=== PATIENT | male | born 1985 | race American Indian/Alaskan Native ===

== ENCOUNTER 2025-01-20 20:24 | Emergency (ER) | payer OTHER, SELFPAY ==
[~2025-01-20] VITALS: Ht 170.2 cm; Wt 91.4 kg
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
[2025-01-20] MEDS ORDERED: GABA300T4 PO (21:49)
[2025-01-20] MEDS ORDERED: CYCL-838 PO (21:49)
[2025-01-20 22:05] VITALS: BP 117/65; TEMP 97.9
[2025-01-20 22:06] VITALS: PULSE 71; RESP 19; O2SAT 97
== END 2025-01-20 22:11 | disposition home or self-care (01) ==
LOC: ER 20:24
DX: S13.4XXA Sprain of ligaments of cervical spine, initial encounter (principal); S33.5XXA Sprain of ligaments of lumbar spine, initial encounter; Z88.0 Allergy status to penicillin; V43.52XA Car driver injured in collision with other type car in traffic accident, initial encounter; Y93.89 Activity, other specified; Y92.410 Unspecified street and highway as the place of occurrence of the external cause; Y99.8 Other external cause status
CPT/HCPCS: 72040

== ENCOUNTER 2025-09-17 08:08 | Inpatient (IN) | payer OTHER, SELFPAY ==
[2025-09-17] VITALS (8 sets, daily range): BP systolic 11–126; BP diastolic 74–93; PULSE 64–124; RESP 11–20; TEMP 97.7–98.7; O2SAT 94–100
[~2025-09-17] VITALS: Ht 170.2 cm; Wt 86.9 kg
[~2025-09-17 08:08] MED LIST: CYCL-838 PO; GABA300T4 PO
[2025-09-17] MEDS: ACETAMINOPHEN 500 MG TAB or CAP PO ONE (08:49)
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
[2025-09-17 08:58] LABS: Hematocrit 47.6 % (41.0-53.0); Hemoglobin 16.1 g/dL (13.5-17.5); Mean Corpuscular Hemoglobin 30.0 pg (28.0-32.0); Mean Corpuscular Volume 88.5 fL (80.0-100.0); Nucleated Red Blood Cells % 0.1 %
[2025-09-17 09:06] LABS: Chloride 101 mmol/L (98-107); Potassium 4.3 mmol/L (3.5-5.1); Sodium 138 mmol/L (136-145)
[2025-09-17 09:07] LABS: Anion Gap 11 (5-15); Carbon Dioxide 26 mmol/L (20-31)
[2025-09-17 09:08] LABS: Calcium 9.5 mg/dL (8.7-10.4)
[2025-09-17 09:12] LABS: BUN/Creatinine Ratio 15.7 (10.0-20.0); Blood Urea Nitrogen 14 mg/dL (9-23); Glucose 96 mg/dL (74-106)
[2025-09-17] MEDS: LACTATED RINGER'S 2,000 ML IV ONE (09:14)
--- NOTE | 2025-09-17 09:23 | DVH ---
CHEST RADIOGRAPH Indication: sob Technique: Two views of the chest was obtained. Comparison: XR CHEST 2 VIEWS on DOS: 03/10/21 Findings: No focal consolidation. No significant pleural effusion. No pneumothorax. Mildly enlarged cardiomediastinal silhouette. IMPRESSION: No acute pulmonary process.
[2025-09-17] MEDS: AZITHROMYCIN 500MG/250ML 250 ML IV ONE (10:03)
[2025-09-17 10:07] LABS: COVID19 ANTIGEN SOFIA FIA NEGATIVE (NEGATIVE)
--- NOTE | 2025-09-17 11:11 | DVHHPRES ---
History of Present Illness Resident Creating Document: ASHKAN DELAROSA History of Present Illness Juan Pablo Unger is a 39-year-old male patient who presents to ED with chief complaint of two day history of nausea, sinus, dyspnea functional class four and dry cough, which progressed with slurred speech, numbness in four limbs and chills the day of his admission, prompting his visit. Patient reports presenting similar symptoms approximately two years ago where he was diagnosed with questionable TIA (he is not on aspirin nor statins). Denies any other associated symptoms. Past medical history: Questionable TIA Surgical history: Right hand surgery Family history: Father had colon cancer and grandmother had breast cancer Social history: He lives in [place] with family (next of kin is mother and ). Denies current tobacco, alcohol and other drug abuse Allergies: Penicillin Home medication: Denies Patient seen and examined at bedside. Currently has been new complaints. Patient admitted for further evaluation. Past Medical History Per HPI Past Surgical History Per HPI Family History Per HPI Past Social History Per HPI Review of Systems Review of Systems Per HPI Allergies: Coded Allergies: Penicillins (Verified Allergy, Unknown, 01/20/25) Exam Vital Signs Vital Signs Date Time Temp Pulse Resp B/P (MAP) Pulse Ox O2 Delivery O2 Flow Rate FiO2 09/17/25 09:49 98.7 09/17/25 08:30 124 20 126/93 (104) 98 Exam Patient lying in bed, in no acute distress General: Lucid, afebrile, mucosae are moist Cardiovascular: Normal S1 and S2. No murmurs, gallops or rubs Respiratory: Normal ventilation mechanics. Clear lung sounds on auscultation Abdomen: Soft, nontender, no organomegaly, normal bowel sounds MSK/skin: Mobilizes 4 limbs. Skin is dry and warm Neurological: Oriented in 3 spheres. No motor no sensitive deficits. Pupils are isocoric and reactive Labs/Xrays Labs Test 09/17/25 09:45 09/17/25 09:00 09/17/25 08:41 09/17/25 08:37 Range/Units Troponin I High Sensitivity 37 </=54 ng/L Lactic Acid Level 0.7 0.4-2.0 mmol/L White Blood Count 8.5 4.4-10.8 10^3/uL Red Blood Count 5.38 4.5-5.90 10^6/uL Hemoglobin 16.1 13.5-17.5 g/dL Hematocrit 47.6 41.0-53.0 % Mean Corpuscular Volume 88.5 80.0-100.0 fL Mean Corpuscular Hemoglobin 30.0 28.0-32.0 pg Mean Corpuscular Hemoglobin Concent 33.9 32.0-36.0 g/dL Red Cell Distribution Width 13.5 11.8-14.3 % Platelet Count 195 140-450 10^3/uL Mean Platelet Volume 8.7 6.9-10.8 fL Neutrophils (%) (Auto) 82.8 H 37.0-80.0 % Lymphocytes (%) (Auto) 7.8 L 10.0-50.0 % Monocytes (%) (Auto) 7.7 0.0-12.0 % Eosinophils (%) (Auto) 0.9 0.0-7.0 % Basophils (%) (Auto) 0.8 0.0-2.0 % Neutrophils # (Auto) 7.1 1.6-8.6 10 ^3/uL Lymphocytes # (Auto) 0.7 0.4-5.4 10 ^3/uL Monocytes # (Auto) 0.7 0-1.3 10 ^3/uL Eosinophils # (Auto) 0.1 0-0.8 10 ^3/uL Basophils # (Auto) 0.1 0-0.2 10 ^3/uL Nucleated Red Blood Cells 0.1 % Sodium Level 138 136-145 mmol/L Potassium Level 4.3 3.5-5.1 mmol/L Chloride Level 101 98-107 mmol/L Carbon Dioxide Level 26 20-31 mmol/L Anion Gap 11 5-15 Blood Urea Nitrogen 14 9-23 mg/dL Creatinine 0.89 0.700-1.30 mg/dL Glomerular Filtration Rate Calc 110 >90 mL/min BUN/Creatinine Ratio 15.7 10.0-20.0 Serum Glucose 96 74-106 mg/dL Calcium Level 9.5 8.7-10.4 mg/dL Influenza Type A Antigen Negative Negative Influenza Type B Antigen Negative Negative SARS-CoV-2 Antigen (Rapid) Negative NEGATIVE SEPSIS Sepsis Screen Date sepsis recognized/suspect: Sep 17, 2025 Time Sepsis recognized/suspect: 816 Recent Procedure: No On Antibiotic Therapy: No Respiratory Rate >20: No Heart Rate >90: Yes Temp<36 C (96.8 F) or >38.3 C: No SBP <90 or MAP <65 mmHG: No New Acute Mental Status Change: No Is the patient on CPAP, BIPAP,: No Physician Orders Chest Two Views Routine (09/17/25 08:39) Urinalysis (09/17/25 08:39) Electrocardigram (09/17/25 08:44) Blood Culture (09/17/25 08:43) Notify Md If Map <65 Or Bp<90 (09/17/25 08:43) If Map<65 Start Vasopressor (09/17/25 08:43) Sepsis Reassesment After Fluid (09/17/25 09:43) Troponin-I Hs (09/17/25 11:53) Admit (09/17/25 11:01) Code Status (09/17/25 11:01) Acetaminophen Tablet (Tylenol Tablet) (09/17/25 11:15) Ondansetron Hcl (Zofran) (09/17/25 11:15) Complete Blood Count (09/18/25 04:00) Comprehensive Metabolic Panel (09/18/25 04:00) Npo (Nothing By Mouth) Diet (09/17/25 Lunch) Echo 2d Mode Cardiac Dop (09/17/25 11:01) Morphine Sulfate Injection (09/17/25 11:15) Lovenox 40mg (09/18/25 10:00) Nitroglycerin Sublingual (Ntrostat Subli (09/17/25 11:15) Morphine Sulfate Injection (09/17/25 11:15) Oxygen By Nasal Cannula (09/17/25 11:01) Stat Ekg For Chest Pain (09/17/25 11:01) Notify Md Of Changes From Base (09/17/25 11:01) Bath Mixer For 24 Hours (09/17/25 11:01) Emergency Dysrhythmia Protocol (09/17/25 11:01) Rhythm Strips Once Every Shift (09/17/25 11:01) Ipratropium Medneb (Atrovent Medneb) (09/17/25 12:00) Levalbuterol Hcl (Xopenex Medneb) (09/17/25 12:00) Azithromycin 500mg/250ml (Zithromax 500m (09/18/25 10:00) Ceftriaxone Ivpb Rocephin (09/18/25 09:00) NS (09/17/25 11:15) Vitamin D, 25-Hydroxy (09/17/25 11:01) Vitamin B12 (09/17/25 11:01) Urinalysis (09/17/25 11:01) Thyroid Stimulating Hormone (09/17/25 11:01) PTPTT (09/17/25 11:01) Phosphorus (09/17/25 11:01) Magnesium (09/17/25 11:01) Lipid Panel (09/17/25 11:01) Lipase (09/17/25 11:01) Hemoglobin A1c (09/17/25 11:01) Drug Screen (09/17/25 11:01) Ct Angio Chest Contrast (09/17/25 11:01) Hepatic Panel (09/17/25 11:01) Vital Signs Date Time Temp Pulse Resp B/P (MAP) Pulse Ox O2 Delivery O2 Flow Rate FiO2 09/17/25 09:49 98.7 09/17/25 08:49 99.3 09/17/25 08:30 102.4 124 20 126/93 (104) 98 102.4 09/17/25 08:18 116 09/17/25 08:12 97.8 118 16 132/75 100 97.8 Laboratory Tests Test 09/17/25 08:41 09/17/25 09:00 White Blood Count 8.5 10^3/uL (4.4-10.8) Lactic Acid Level 0.7 mmol/L (0.4-2.0) Medications Medications Dose Ordered Sig/Ta Route Start Time Stop Time Status Last Admin Dose Admin Acetaminophen 1,000 mg ONCE ONCE PO 09/17/25 08:45 09/17/25 08:46 DC 09/17/25 08:49 1,000 MG Azithromycin 250 ml @ 125 mls/hr ONCE ONCE IV 09/17/25 08:45 09/17/25 10:44 DC 09/17/25 10:03 125 MLS/HR Ceftriaxone Sodium 50 ml @ 100 mls/hr ONCE ONCE IV 09/17/25 08:45 09/17/25 09:14 DC 09/17/25 09:44 100 MLS/HR Lactated Ringer's 2,000 ml @ 2,000 mls/hr ONCE ONCE IV 09/17/25 08:45 09/17/25 09:44 DC 09/17/25 09:14 2,000 MLS/HR Assessment/Plan Assessment/Plan ASSESSMENT Sepsis secondary to pneumonia Community-acquired pneumonia Gram-positive/Gram-negative Rule out CVA Ruled out pulmonary embolism Obesity PLAN Admit patient to telemetry Completed head CT which showed no acute intracranial pathology Completed Angio CT which ruled out pulmonary embolism. Questionable congestive heart failure versus pneumonia Ordered brain MRI, echocardiogram and carotid duplex for CVA work up Currently under empiric IV antibiotic (ceftriaxone azithromycin) Ordered pancultures Ruled out influenza and COVID pneumonia Patient is currently on aspirin atorvastatin Ordered HIV and treponema to evaluate immunodeficiency Goals of care discussed with patient for over 18 minutes: Full code status Discussed plan with Dr. Black, patient and nurses: Currently on telemetry status. Ruling out CVA due to presence of slurred speech. Currently under empi nuzhat IV antibiotic due to sepsis, pending culture results. Plan discussed with: Patient, Spouse, Other (Mother and nurses) My Orders Orders - ASHKAN DELAROSA RESIDENT Procedure Category Date Status Time Admit ADMIT 09/17/25 Transmitted 11:01 Code Status CODE 09/17/25 Transmitted 11:01 Acetaminophen Tablet PHA 09/17/25 Logged (Tylenol Tablet) 11:15 Ondansetron Hcl PHA 09/17/25 Logged (Zofran) 11:15 Complete Blood Count LAB 09/18/25 Verified 04:00 Comprehensive LAB 09/18/25 Verified Metabolic Panel 04:00 Npo (Nothing By DIET 09/17/25 Transmitted Mouth) Diet Lunch Echo 2d Mode Cardiac US 09/17/25 Transmitted DOP 11:01 Morphine Sulfate PHA 09/17/25 Logged Injection 11:15 Lovenox 40mg PHA 09/18/25 Transmitted 10:00 Nitroglycerin PHA 09/17/25 Transmitted Sublingual (Ntrostat 11:15 Morphine Sulfate PHA 09/17/25 Transmitted Injection 11:15 Oxygen By Nasal RT 09/17/25 Transmitted Cannula 11:01 Stat Ekg For Chest RADHA 09/17/25 Transmitted Pain 11:01 Notify Of Changes RADHA 09/17/25 Transmitted From Base 11:01 Bath Mixer For RADHA 09/17/25 Transmitted 24 Hours 11:01 Emergency Dysrhythmia RADHA 09/17/25 Transmitted Protocol 11:01 Rhythm Strips Once RADHA 09/17/25 Transmitted Every Shift 11:01 Ipratropium Medneb PHA 09/17/25 Transmitted (Atrovent Medneb) 12:00 Levalbuterol Hcl PHA 09/17/25 Transmitted (Xopenex Medneb) 12:00 Azithromycin PHA 09/18/25 Transmitted 500mg/250ml 10:00 Ceftriaxone Ivpb PHA 09/18/25 Transmitted Rocephin 09:00 NS PHA 09/17/25 Transmitted 11:15 Vitamin D, 25-Hydroxy LAB 09/17/25 Transmitted 11:01 Vitamin B12 LAB 09/17/25 Transmitted 11:01 Urinalysis LAB 09/17/25 Transmitted 11:01 Thyroid Stimulating LAB 09/17/25 Transmitted Hormone 11:01 PTPTT LAB 09/17/25 Transmitted 11:01 Phosphorus LAB 09/17/25 Transmitted 11:01 Magnesium LAB 09/17/25 Transmitted 11:01 Lipid Panel LAB 09/17/25 Transmitted 11:01 Lipase LAB 09/17/25 Transmitted 11:01 Hemoglobin A1c LAB 09/17/25 Transmitted 11:01 Drug Screen LAB 09/17/25 Transmitted 11:[address] 09/17/25 Transmitted Contrast 11:01 Hepatic Panel LAB 09/17/25 Transmitted 11:01 Date of Service: Sep 17, 2025 Billing Provider: LULY BLACK MD Common Visit Codes: 04573-[id number] INP/OBS CARE (HIGH) Secondary Visit Codes: [id number] CARE PLAN 30 MINUTES ASHKAN DELAROSA Sep 17, 2025 11:11
[2025-09-17] MEDS ORDERED: ONDANSETRON HCL 4 MG/2 ML VIAL IV PRN (11:15)
[2025-09-17] MEDS ORDERED: ACETAMINOPHEN 325 MG TAB PO PRN (11:15)
[2025-09-17] MEDS ORDERED: NITROGLYCERIN 0.4 MG SL TAB SL PRN (11:15)
[2025-09-17] MEDS: IPRATROPIUM BROM 0.5 MG/2.5ML INH SOL ONE (11:26)
[2025-09-17] MEDS: LEVALBUTEROL HCL 1.25 MG/3 ML NEB ONE (11:26)
[2025-09-17 12:10] LABS: INR 1.0 (0.9-1.15); Partial Thromboplastin Time 29.6 SEC (24.5-34.5); Prothrombin Time 10.6 sec (9.3-11.8)
[2025-09-17 12:29] LABS: Triglycerides 55.0 mg/dL (< 150)
[2025-09-17 12:30] LABS: Magnesium 1.9 mg/dL (1.6-2.6)
[2025-09-17 12:31] LABS: Cholesterol 160.0 mg/dL (< 200); HDL Cholesterol 48.0 mg/dL (40-59)
[2025-09-17 12:40] LABS: Urine Protein, UAD Negative (Negative)
[2025-09-17 12:43] LABS: Alkaline Phosphatase 81.0 U/L (46-116); Lipase 32.0 U/L (12-53); Total Protein 6.9 g/dL (5.7-8.2)
[2025-09-17 12:44] LABS: Albumin 4.1 g/dL (3.2-4.8); Bilirubin, Total 0.9 mg/dL (0.2-1.0)
[2025-09-17 12:45] LABS: Alanine Aminotransferase 51.0 U/L (7-40); Bilirubin, Direct 0.3 mg/dL (<0.3)
[2025-09-17 12:56] LABS: Amphetamine Screen, Urine Neg (NEGATIVE); Barbiturate Scree,Urine Neg (NEGATIVE); Benzodiazephine Screen, Urine Neg (NEGATIVE); Cannabinoid Screen, Urine Neg (NEGATIVE); Cocaine Screen, Urine Neg (NEGATIVE); Opiate Scree,Urine Neg (NEGATIVE); Phencyclidine Screen, Urine Neg (NEGATIVE)
[2025-09-17] MEDS: IOHEXOL 350 MG/ML 100ML IJ ONE ×2 (13:20→13:21)
--- NOTE | 2025-09-17 13:51 | DVH ---
EXAM: CT CT ANGIO CHEST CONTRAST HISTORY: Rule out PE 39-year-old male with shortness of breath. COMPARISON: CT ANGIO CHEST - PULMONARY on DOS: 01/12/20 TECHNIQUE: Helical CT images of the chest were performed with 100 mL omnipaque 350 IV contrast using pulmonary CTA protocol. Sagittal and coronal reformatted images and 3D MIP images were obtained. This CT exam was performed using 1 or more of the following dose reduction techniques: Automated exposure control, adjustment of the mA and/or kv according to patient size, or the use of iterative reconstruction techniques. Radiation Dose: Chest: CTDI volume is 19.12 mGy. Dose-length product is 661.92 mGy*cm. FINDINGS: No central pulmonary arterial filling defects are identified. Evaluation of the more peripheral pulmonary arteries is limited by poor contrast timing. There is [id number] central peribronchial thickening. There is mild interstitial prominence in the lung bases. There are trace bilateral pleural effusions No pneumothorax or consolidative infiltrates. No suspicious mediastinal or axillary adenopathy. The heart is mildly enlarged. No thoracic aortic aneurysm or dissection. There is bilateral gynecomastia, much greater on the left. There is a left hepatic simple cyst. There is mild thoracic degenerative disc disease. IMPRESSION: 1. No evidence of central pulmonary embolism. Evaluation of the more peripheral pulmonary arteries is severely limited by poor contrast timing. 2. Mild cardiomegaly with trace pleural effusions, bibasilar interstitial prominence, and central peribronchial thickening suggestive of Mild CHF. Additionally, peribronchial thickening can be seen with reactive airways disease.
[2025-09-17] MEDS ORDERED: MORPHINE SULFATE 4 MG/ML SYR/VIAL IV PRN ×2 (14:00)
--- NOTE | 2025-09-17 15:06 | DVH ---
CLINICAL HISTORY: SLURRED SPEECH UPON ARRIVAL TO ER TECHNIQUE: Helical scanning was performed of the head from the skull base to the vertex. Multiplanar reconstructions were performed. This exam was performed according to our departmental dose optimization program. Up-to-date CT equipment and radiation dose reduction techniques are utilized as appropriate. CTDI in the day. DLP [id number] COMPARISON: CT BRAIN on DOS: 11/15/23 FINDINGS: Please note that there is contrast within the brain from CTA chest performed earlier There is no evidence for acute intracranial hemorrhage, acute ischemic changes, mass, mass effect, or extra-axial fluid collection. There is no hydrocephalus or midline shift. There is no effacement of the cerebral sulci and basal subarachnoid cisterns. The villanueva-white matter differentiation is well maintained. The imaged paranasal sinuses are clear. IMPRESSION: NO ACUTE INTRACRANIAL ABNORMALITY SEEN.
[2025-09-17] MEDS: SODIUM CHLORIDE 0.9% 1,000 ML IV SCH (15:10)
[2025-09-17] MEDS: IPRATROPIUM BROM 0.5 MG/2.5ML INH SOL NEB SCH (16:34)
[2025-09-17] MEDS: LEVALBUTEROL HCL 1.25 MG/3 ML NEB NEB SCH (16:35)
--- NOTE | 2025-09-17 19:26 | ECG ---
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
--- NOTE | 2025-09-17 20:51 | DVHSR ---
APPROVED REPORT EXAM: Two-dimensional and M-mode echocardiogram with Doppler and color Doppler. Blood Pressure: 126/93 mmHg INDICATION SOB RISK FACTORS Height: 5'7", Weight: 201 DIMENSIONS LVDd 4.5 (3.8-5.7cm) LA (2D) 3.4 (1.9-4.0cm) Aortic Root 3.3 (2.0-3.7cm) LVDs 2.9 (2.5-4.0cm) LA (MM) (1.9-4.0cm) Aortic Cusp Exc 2.4 (1.5-2.0cm) EF (%) 65.0 (55-70%) Rt. Atrium 3.3 (1.9-4.0cm) Asc. Aorta cm IVSd 1.1 (0.7-1.1cm) RV (D) 3.7 (1.8-2.4cm) PWd 1.0 (0.7-1.1cm) Mitral Valve Mitral Mitral Stenosis E wave 1.02m/s MV Mean GR. mmHg A wave 0.74m/s MV Peak GR. mmHg E/A ratio 1.4 2D MVA cm2 DECEL Time 196ms PRESS 1/2 Time ms Aortic Valve Aortic Valve Aortic Stenosis V1 1.08m/s AO Mean GR. 5mmHg V2 1.46m/s AO Peak GR. 9mmHg LVOT Diameter 2.4 (1.8-2.4cm) Doppler MAURI 3.34cm2 Pulmonic Valve V2 1.04m/s Tricuspid Valve TR Velocity 2.35m/s RVSP 25mmHg Conclusion LV EF IS 70% AND IS NORMAL NORMAL VALVES NO EFFUSION NORMAL RV FUNCTION
[2025-09-18] VITALS (13 sets, daily range): BP systolic 110–126; BP diastolic 65–79; PULSE 60–89; RESP 12–18; TEMP 97.7–98.3; O2SAT 93–100
--- NOTE | 2025-09-18 00:29 | DVH ---
Carotid Duplex Clinical History: CVA Comparison: None Technique: Duplex Doppler evaluation of the extracranial carotid and vertebral arteries including color Doppler and spectral/pulsed waveform analysis was performed. Findings: RIGHT SIDE: The peak systolic velocities are 120 cm/s in the CCA, 113 cm/s in the ICA. The ICA/CCA ratio is 0.9. The external carotid artery is patent with peak systolic velocity of 118 cm/s proximally. There is appropriate antegrade flow in the right vertebral artery. LEFT SIDE: The peak systolic velocities are 113 cm/s in the CCA, 98 cm/s in the ICA. The ICA/CCA ratio is 0.9. The external carotid artery is patent with peak systolic velocity of 129 cm/s proximally. There is appropriate antegrade flow in the left vertebral artery. IMPRESSION: No hemodynamically significant stenosis noted in the right carotid system. No hemodynamically significant stenosis noted in the left carotid system. Reference: Radiology 2003; 229:340-34 Reference: Radiology 2003; 229:[id number] Normal ICA PSV is <125 cm/sec and no plaque or intimal thickening is visible sonographically additional criteria include ICA/CCA PSV ratio <2.0 and ICA EDV <40 cm/sec <50% ICA stenosis ICA PSV is <125 cm/sec and plaque or intimal thickening is visible sonographically additional criteria include ICA/CCA PSV ratio <2.0 and ICA EDV <40 cm/sec 50-69% ICA stenosis ICA PSV is 125-230 cm/sec and plaque is visible sonographically additional criteria include ICA/CCA PSV ratio of 2.0-4.0 and ICA EDV of 40-100 cm/sec 70% ICA stenosis but less than near occlusion ICA PSV is >230 cm/sec and visible plaque and luminal narrowing are seen at villanueva-scale and color Doppler ultrasound (the higher the Doppler parameters lie above the threshold of 230 cm/sec, the greater the likelihood of severe disease) additional criteria include ICA/CCA PSV ratio >4 and ICA EDV >100 cm/sec
[2025-09-18 06:02] LABS: Hematocrit 41.7 % (41.0-53.0); Hemoglobin 14.2 g/dL (13.5-17.5); Mean Corpuscular Hemoglobin 30.2 pg (28.0-32.0); Mean Corpuscular Volume 88.9 fL (80.0-100.0); Nucleated Red Blood Cells % 0.0 %
[2025-09-18 06:28] LABS: Alanine Aminotransferase 37 U/L (7-40); Albumin 4.1 g/dL (3.2-4.8); Alkaline Phosphatase 73 U/L (46-116); Anion Gap 11 (5-15); BUN/Creatinine Ratio 12.9 (10.0-20.0); Blood Urea Nitrogen 11 mg/dL (9-23); Calcium 8.9 mg/dL (8.7-10.4); Carbon Dioxide 26 mmol/L (20-31); Chloride 105 mmol/L (98-107); Potassium 4.3 mmol/L (3.5-5.1); Sodium 142 mmol/L (136-145); Total Protein 6.8 g/dL (5.7-8.2)
[2025-09-18 06:29] LABS: Bilirubin, Total 1.0 mg/dL (0.2-1.0)
[2025-09-18 06:30] LABS: Glucose 106 mg/dL (74-106)
--- NOTE | 2025-09-18 06:54 | ECG ---
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
[2025-09-18] MEDS: MAGNESIUM SULFATE 1GM/100ML 100 ML IV ONE (07:48)
[2025-09-18] MEDS: ENOXAPARIN SOD 40 MG/0.4 ML SYRINGE SC SCH (10:01)
[2025-09-18] MEDS: CYANOCOBALAMIN 500 MCG TAB PO SCH (10:01)
--- NOTE | 2025-09-18 10:17 | DVH ---
MRI BRAIN WITHOUT CONTRAST History: CVA Comparison: CT HEAD WITHOUT CONTRAST on DOS: 09/17/25 Technique: Multi-sequence, multiplanar magnetic resonance images of the brain are reviewed. Findings: No acute hemorrhage or infarct is seen. Scattered T2/FLAIR hyperintense foci in the periventricular and subcortical white matter, suggestive of chronic microvascular disease. The ventricles and sulci are normal in size and configuration for the patient's age. There is no evidence of mass or mass effect. There are no abnormal extra-axial fluid collections. The major intracranial blood vessels retain normal flow voids consistent with their patency. Trace mucosal thickening of the paranasal sinuses. Mastoid air cells are clear.. IMPRESSION: No acute intracranial process.
[2025-09-18] MEDS: AZITHROMYCIN 500MG/250ML 250 ML IV SCH (11:15)
[2025-09-18 13:11] LABS: Hepatitis B Surface Antigen Negative (Negative)
[2025-09-18] MEDS ORDERED: AZIT500T66 PO (13:20)
[2025-09-18 13:29] LABS: Hepatitis C Antibody Negative (Negative)
--- NOTE | 2025-09-18 14:29 | DVHDSRES ---
Discharge Summary Date of Admission Resident Creating Document: ASHKAN DELAROSA Sep 17, 2025 at 11:01 Date of Discharge: Sep 18, 2025 Admitting Diagnosis Sepsis secondary to pneumonia Community-acquired pneumonia Gram-positive/Gram-negative Labs/Diagnostic Data: Laboratory Results Test 09/18/25 04:47 09/17/25 12:00 09/17/25 09:45 09/17/25 09:19 White Blood Count 4.9 10^3/uL (4.4-10.8) Red Blood Count 4.69 10^6/uL (4.5-5.90) Hemoglobin 14.2 g/dL (13.5-17.5) Hematocrit 41.7 % (41.0-53.0) Mean Corpuscular Volume 88.9 fL (80.0-100.0) Mean Corpuscular Hemoglobin 30.2 pg (28.0-32.0) Mean Corpuscular Hemoglobin Concent 34.0 g/dL (32.0-36.0) Red Cell Distribution Width 14.1 % (11.8-14.3) Platelet Count 179 10^3/uL (140-450) Mean Platelet Volume 9.0 fL (6.9-10.8) Neutrophils (%) (Auto) 56.6 % (37.0-80.0) Lymphocytes (%) (Auto) 25.2 % (10.0-50.0) Monocytes (%) (Auto) 13.5 % (0.0-12.0) Eosinophils (%) (Auto) 3.8 % (0.0-7.0) Basophils (%) (Auto) 0.9 % (0.0-2.0) Neutrophils # (Auto) 2.8 10 ^3/uL (1.6-8.6) Lymphocytes # (Auto) 1.2 10 ^3/uL (0.4-5.4) Monocytes # (Auto) 0.7 10 ^3/uL (0-1.3) Eosinophils # (Auto) 0.2 10 ^3/uL (0-0.8) Basophils # (Auto) 0 10 ^3/uL (0-0.2) Nucleated Red Blood Cells 0.0 % Sodium Level 142 mmol/L (136-145) Potassium Level 4.3 mmol/L (3.5-5.1) Chloride Level 105 mmol/L (98-107) Carbon Dioxide Level 26 mmol/L (20-31) Anion Gap 11 (5-15) Blood Urea Nitrogen 11 mg/dL (9-23) Creatinine 0.85 mg/dL (0.700-1.30) Glomerular Filtration Rate Calc 112 mL/min (>90) BUN/Creatinine Ratio 12.9 (10.0-20.0) Serum Glucose 106 mg/dL (74-106) Calcium Level 8.9 mg/dL (8.7-10.4) Total Bilirubin 1.0 mg/dL (0.2-1.0) Aspartate Amino Transferase (AST) 23 U/L (13-40) Alanine Aminotransferase (ALT) 37 U/L (7-40) Alkaline Phosphatase 73 U/L (46-116) Total Protein 6.8 g/dL (5.7-8.2) Albumin 4.1 g/dL (3.2-4.8) Hepatitis B Surface Antigen Negative (Negative) Hepatitis C Antibody Negative (Negative) Troponin I High Sensitivity 44 ng/L (</=54) Phosphorus Level 2.2 mg/dL (2.4-5.1) Magnesium Level 1.9 mg/dL (1.6-2.6) Direct Bilirubin 0.3 mg/dL (<0.3) Triglycerides Level 55 mg/dL (< 150) Cholesterol Level 160 mg/dL (< 200) LDL Cholesterol 104 mg/dL (< 100) HDL Cholesterol 48 mg/dL (40-59) Lipase 32 U/L (12-53) Thyroid Stimulating Hormone (TSH) 1.35 uIU/mL (0.55-4.78) Treponema pallidum Antibody Non-reactive (Negative) HIV (1&2) Antibody Negative (Negative) Test 09/17/25 09:00 09/17/25 08:57 09/17/25 08:41 09/17/25 08:37 Lactic Acid Level 0.7 mmol/L (0.4-2.0) Vitamin B12 Level 418 pg/mL (211-911) Vitamin D 25-Hydroxy 33.2 ng/mL (30.0-100) Urine Color Light-yellow (Yellow) Urine Clarity Clear (Clear) Urine pH 7.0 (5.0-9.0) Urine Specific [place] 1.016 (1.001-1.035) Urine Protein Negative (Negative) Urine Ketones 1+ (Negative) Urine Blood Negative /uL (Negative) Urine Nitrite Negative (Negative) Urine Bilirubin Negative (Negative) Urine Urobilinogen Normal mg/dL (Negative) Urine Leukocyte Esterase Negative /uL (Negative) Urine RBC 1 /hpf (0 - 3) Urine Microscopic WBC < 1 /HPF (0-3) Urine Squamous Epithelial Cells None seen /hpf (<5) Urine Bacteria None seen /hpf (None Seen) Urine Glucose Normal mg/dL (Normal) Urine Opiates Screen Neg (NEGATIVE) Urine Fentanyl Screen Neg (NEGATIVE) Urine Barbiturates Screen Neg (NEGATIVE) Urine Phencyclidine Screen Neg (NEGATIVE) Urine Amphetamines Screen Neg (NEGATIVE) Urine Benzodiazepines Screen Neg (NEGATIVE) Urine Cocaine Screen Neg (NEGATIVE) Urine Cannabinoids Screen Neg (NEGATIVE) Prothrombin Time 10.6 sec (9.3-11.8) Prothrombin Time INR 1.00 (0.9-1.15) Activated Partial Thromboplast Time 29.6 SEC (24.5-34.5) Hemoglobin A1c 5.7 % A1C (<5.7) B-Type Natriuretic Peptide 5.36 pg/mL (0-100) Influenza Type A Antigen Negative (Negative) Influenza Type B Antigen Negative (Negative) SARS-CoV-2 Antigen (Rapid) Negative (NEGATIVE) Other Laboratory Tests 09/18/25 04:47 Brief Hx & Hospital Course: Juan Pablo Nguyen is a 39-year-old male patient who presents to ED with chief complaint of two day history of nausea, sinus, dyspnea functional class four and dry cough, which progressed with slurred speech, numbness in four limbs and chills the day of his admission, prompting his visit. Patient reports presenting similar symptoms approximately two years ago where he was diagnosed with questionable TIA (he is not on aspirin nor statins). Denies any other associated symptoms. Initial lab workup revealed ALT 51, LDL 104. CT head negative for acute intracranial abnormality. Chest x-ray no acute pulmonary process. CT angio chest- No evidence of central pulmonary embolism. Evaluation of the more peripheral pulmonary arteries is severely limited by poor contrast timing. Mild cardiomegaly with trace pleural effusions, bibasilar interstitial prominence, and central peribronchial thickening suggestive of Mild CHF. Additionally, peribronchial thickening can be seen with reactive airways disease. Echo 2D LVEF 70%. Carotid Doppler- No hemodynamically significant stenosis noted in the right or left carotid system. MRI of the brain- No acute intracranial process. Patient is treated conservatively with IV antibiotics. Patient's symptoms clinically improved. Patient is being discharged with azithromycin orally for 4 more days. Patient was hemodynamically stable on discharge. General: Lucid, afebrile, mucosae are moist Cardiovascular: Normal S1 and S2. No murmurs, gallops or rubs Respiratory: Normal ventilation mechanics. Clear lung sounds on auscultation Abdomen: Soft, nontender, no organomegaly, normal bowel sounds MSK/skin: Mobilizes 4 limbs. Skin is dry and warm Neurological: Oriented in 3 spheres. No motor no sensitive deficits. Pupils are isocoric and reactive Plan of care discussed with Dr. Black Operations or Procedures [place] [address] Ph: [phone] DIAGNOSTIC IMAGING Diagnostic Imaging Report : [id number] Signed PATIENT: JUAN PABLO NGUYEN ACCT: [id number] UNIT: [id number] : 1985 LOC: ER ROOM / BED: / AGE / SEX: 39 / M ADM STATUS: REG ER SERVICE 8 ORDERING PHYSICIAN: BRANDY BLAND RESIDENT PROCEDURE(s): CXR2 - CHEST TWO VIEWS ROUTINE REASON: sob ORDER NUMBER(s): [id number], ACCESSION NUMBER(s): [id number] CHEST RADIOGRAPH Indication: sob Technique: Two views of the chest was obtained. Comparison: XR CHEST 2 VIEWS on DOS: 03/10/21 Findings: No focal consolidation. No significant pleural effusion. No pneumothorax. Mildly enlarged cardiomediastinal silhouette. IMPRESSION: No acute pulmonary process. ATED BY: TARA SPEAR MD DICTATED DATE/TIME: 09/17/25919 SIGNED BY: TARA SPEAR MD SIGNED DATE/TIME: 09/17/25919 CC: [place] [address] Ph: [phone] DIAGNOSTIC IMAGING Diagnostic Imaging Report : [id number] Signed PATIENT: JUAN PABLO NGUYEN ACCT: [id number] UNIT: [id number] : 1985 LOC: OVERFLOW ROOM / BED: [facility] / A AGE / SEX: 39 / M ADM STATUS: ADM IN SERVICE 1101 ORDERING PHYSICIAN: ASHKAN DELAROSA RESIDENT PROCEDURE(s): CTACH - CT ANGIO CHEST CONTRAST REASON: Rule out PE ORDER NUMBER(s): [id number], ACCESSION NUMBER(s): [id number] EXAM: CT CT ANGIO CHEST CONTRAST HISTORY: Rule out PE 39-year-old male with shortness of breath. COMPARISON: CT ANGIO CHEST - PULMONARY on DOS: 01/12/20 TECHNIQUE: Helical CT images of the chest were performed with 100 mL omnipaque 350 IV contrast using pulmonary CTA protocol. Sagittal and coronal reformatted images and 3D MIP images were obtained. This CT exam was performed using 1 or more of the following dose reduction techniques: Automated exposure control, adjustment of the mA and/or kv according to patient size, or the use of iterative reconstruction techniques. Radiation Dose: Chest: CTDI volume is 19.12 mGy. Dose-length product is 661.92 mGy*cm. FINDINGS: No central pulmonary arterial filling defects are identified. Evaluation of the more peripheral pulmonary arteries is limited by poor contrast timing. There is [id number] central peribronchial thickening. There is mild interstitial prominence in the lung bases. There are trace bilateral pleural effusions No pneumothorax or consolidative infiltrates. No suspicious mediastinal or axillary adenopathy. The heart is mildly enlarged. No thoracic aortic aneurysm or dissection. There is bilateral gynecomastia, much greater on the left. There is a left hepatic simple cyst. There is mild thoracic degenerative disc disease. IMPRESSION: 1. No evidence of central pulmonary embolism. Evaluation of the more peripheral pulmonary arteries is severely limited by poor contrast timing. 2. Mild cardiomegaly with trace pleural effusions, bibasilar interstitial prominence, and central peribronchial thickening suggestive of Mild CHF. Additionally, peribronchial thickening can be seen with reactive airways disease. ATED BY: PATTIE GRANADOS MD DICTATED DATE/TIME: 09/17/25 1348 SIGNED BY: PATTIE GRANADOS MD SIGNED DATE/TIME: 09/17/25 1348 CC: [place] [address] Ph: [phone] DIAGNOSTIC IMAGING Diagnostic Imaging Report : [id number] Signed PATIENT: JUAN PABLO NGUYEN ACCT: [id number] UNIT: [id number] : 1985 LOC: OVERFLOW ROOM / BED: 1011-ERT / A AGE / SEX: 39 / M ADM STATUS: ADM IN SERVICE 1311 ORDERING PHYSICIAN: ASHKAN DELAROSA RESIDENT PROCEDURE(s): HWOCT - HEAD WITHOUT CONTRAST REASON: SLURRED SPEECH UPON ARRIVAL TO ER ORDER NUMBER(s): [id number], ACCESSION NUMBER(s): [id number] CLINICAL HISTORY: SLURRED SPEECH UPON ARRIVAL TO ER TECHNIQUE: Helical scanning was performed of the head from the skull base to the vertex. Multiplanar reconstructions were performed. This exam was performed according to our departmental dose optimization program. Up-to-date CT equipment and radiation dose reduction techniques are utilized as appropriate. CTDI in the day. DLP [phone] COMPARISON: CT BRAIN on DOS: 11/15/23 FINDINGS: Please note that there is contrast within the brain from CTA chest performed earlier There is no evidence for acute intracranial hemorrhage, acute ischemic changes, mass, mass effect, or extra-axial fluid collection. There is no hydrocephalus or midline shift. There is no effacement of the cerebral sulci and basal subarachnoid cisterns. The villanueva-white matter differentiation is well maintained. The imaged paranasal sinuses are clear. IMPRESSION: NO ACUTE INTRACRANIAL ABNORMALITY SEEN. ATED BY: VERENICE VILLALTA MD DICTATED DATE/TIME: 09/17/25 1503 SIGNED BY: VERENICE VILLALTA MD SIGNED DATE/TIME: 09/17/25 1507 CC: [address] [address] Ph: [phone] DIAGNOSTIC IMAGING Diagnostic Imaging Report : [id number] Signed PATIENT: JUAN PABLO NGUYEN ACCT: [id number] UNIT: [id number] : 1985 LOC: TELE-CENTR ROOM / BED: 0217T / A AGE / SEX: 39 / M ADM STATUS: ADM IN SERVICE 7878 ORDERING PHYSICIAN: ASHKAN DELAROSA RESIDENT PROCEDURE(s): CARCL - CAROTID DUPLX W COLOR DOP REASON: CVA ORDER NUMBER(s): [id number], ACCESSION NUMBER(s): [id number] Carotid Duplex Clinical History: CVA Comparison: None Technique: Duplex Doppler evaluation of the extracranial carotid and vertebral arteries including color Doppler and spectral/pulsed waveform analysis was performed. Findings: RIGHT SIDE: The peak systolic velocities are 120 cm/s in the CCA, 113 cm/s in the ICA. The ICA/CCA ratio is 0.9. The external carotid artery is patent with peak systolic velocity of 118 cm/s proximally. There is appropriate antegrade flow in the right vertebral artery. LEFT SIDE: The peak systolic velocities are 113 cm/s in the CCA, 98 cm/s in the ICA. The ICA/CCA ratio is 0.9. The external carotid artery is patent with peak systolic velocity of 129 cm/s proximally. There is appropriate antegrade flow in the left vertebral artery. IMPRESSION: No hemodynamically significant stenosis noted in the right carotid system. No hemodynamically significant stenosis noted in the left carotid system. Reference: Radiology 2003; 229:340-34 Reference: Radiology 2003; 229:[id number] Normal ICA PSV is <125 cm/sec and no plaque or intimal thickening is visible sonographically additional criteria include ICA/CCA PSV ratio <2.0 and ICA EDV <40 cm/sec <50% ICA stenosis ICA PSV is <125 cm/sec and plaque or intimal thickening is visible sonographically additional criteria include ICA/CCA PSV ratio <2.0 and ICA EDV <40 cm/sec 50-69% ICA stenosis ICA PSV is 125-230 cm/sec and plaque is visible sonographically additional criteria include ICA/CCA PSV ratio of 2.0-4.0 and ICA EDV of 40-100 cm/sec 70% ICA stenosis but less than near occlusion ICA PSV is >230 cm/sec and visible plaque and luminal narrowing are seen at villanueva-scale and color Doppler ultrasound (the higher the Doppler parameters lie above the threshold of 230 cm/sec, the greater the likelihood of severe disease) additional criteria include ICA/CCA PSV ratio >4 and ICA EDV >100 cm/sec ATED BY: TARA SPEAR MD DICTATED DATE/TIME: 09/18/2526 SIGNED BY: TARA SPEAR MD SIGNED DATE/TIME: 09/18/2526 CC: [place] [address] Ph: [phone] DIAGNOSTIC IMAGING Diagnostic Imaging Report : [id number] Signed PATIENT: JUAN PABLO NGUYEN ACCT: [id number] UNIT: [id number] : 1985 LOC: CENTRAL ROOM / BED: [facility] / A AGE / SEX: 39 / M ADM STATUS: ADM IN SERVICE 01 ORDERING PHYSICIAN: ASHKAN DELAROSA RESIDENT PROCEDURE(s): MBHL - BRAIN HEAD WO CONTRAST REASON: CVA ORDER NUMBER(s): [id number], ACCESSION NUMBER(s): [id number] MRI BRAIN WITHOUT CONTRAST History: CVA Comparison: CT HEAD WITHOUT CONTRAST on DOS: 09/17/25 Technique: Multi-sequence, multiplanar magnetic resonance images of the brain are reviewed. Findings: No acute hemorrhage or infarct is seen. Scattered T2/FLAIR hyperintense foci in the periventricular and subcortical white matter, suggestive of chronic microvascular disease. The ventricles and sulci are normal in size and configuration for the patient's age. There is no evidence of mass or mass effect. There are no abnormal extra-axial fluid collections. The major intracranial blood vessels retain normal flow voids consistent with their patency. Trace mucosal thickening of the paranasal sinuses. Mastoid air cells are clear.. IMPRESSION: No acute intracranial process. ATED BY: TARA SPEAR MD DICTATED DATE/TIME: 09/18/25 1014 SIGNED BY: TARA SPEAR MD SIGNED DATE/TIME: 09/18/25 1014 CC: [place] [address] Ph: [phone] DIAGNOSTIC IMAGING Diagnostic Imaging Report : [id number] Signed PATIENT: JUAN PABLO NGUYEN ACCT: [id number] UNIT: [id number] : 1985 LOC: OVERFLOW ROOM / BED: [address] [place] [address] / AGE / SEX: 39 / M ADM STATUS: ADM IN SERVICE 1101 ORDERING PHYSICIAN: ASHKAN DELAROSA RESIDENT PROCEDURE(s): ECIDC - ECHO 2D MODE CARDIAC DOP REASON: SOB ORDER NUMBER(s): [id number], ACCESSION NUMBER(s): [id number] APPROVED REPORT EXAM: Two-dimensional and M-mode echocardiogram with Doppler and color Doppler. Blood Pressure: 126/93 mmHg INDICATION SOB RISK FACTORS Height: 5'7", Weight: 201 DIMENSIONS LVDd 4.5 (3.8-5.7cm) LA (2D) 3.4 (1.9-4.0cm) Aortic Root 3.3 (2.0- 3.7cm) LVDs 2.9 (2.5-4.0cm) LA (MM) (1.9-4.0cm) Aortic Cusp Exc 2.4 (1.5- 2.0cm) EF (%) 65.0 (55-70%) Rt. Atrium 3.3 (1.9-4.0cm) Asc. Aorta cm IVSd 1.1 (0.7-1.1cm) RV (D) 3.7 (1.8-2.4cm) PWd 1.0 (0.7-1.1cm) Mitral Valve Mitral Mitral Stenosis E wave 1.02m/s MV Mean GR. mmHg A wave 0.74m/s MV Peak GR. mmHg E/A ratio 1.4 2D MVA cm2 DECEL Time 196ms PRESS 1/2 Time ms Aortic Valve Aortic Valve Aortic Stenosis V1 1.08m/s AO Mean GR. 5mmHg V2 1.46m/s AO Peak GR. 9mmHg LVOT Diameter 2.4 (1.8-2.4cm) Doppler MAURI 3.34cm2 Pulmonic Valve V2 1.04m/s Tricuspid Valve TR Velocity 2.35m/s RVSP 25mmHg Conclusion LV EF IS 70% AND IS NORMAL NORMAL VALVES NO EFFUSION NORMAL RV FUNCTION SIGNED BY: LELAND VILLALTA MD SIGNED DATE/TIME: 09/17/252050 CC: Condition at Discharge: Stable Final Diagnosis/Problems List Suspected Sepsis secondary to pneumonia Community-acquired pneumonia Gram-positive/Gram-negative Ruled out CVA Ruled out pulmonary embolism Obesity Discharge Disposition: Home Discharge Instruct/Medications Diet: Regular Activity: No Restrictions, As Tolerated Follow Up/Referral: DC clinic PCP Medications: As prescribed Scheduled Azithromycin (Azithromycin), 250 MG PO DAILY Scheduled PRN Cyclobenzaprine Hcl (Cyclobenzaprine Hcl), 7.5 MG PO Q6HP PRN Gabapentin (Once-Daily) (Gabapentin), 300 MG PO Q6HP PRN Discharge Statement: "Patient was advised to return to the ER or call 911 if any headaches, dizziness, shortness of breath, chest pain, abdominal pain, bleeding, fevers, or worsening of medical condition. Patient was counseled about treatment plan, medications, possible side effects, patientverbalized understanding. All questions were answered to the best of my ability. This discharge took greater then 30 minutes in planning, reviewing documentation, counseling the patient, and discussing with other team members." ASSESSMENT ASSESSMENT Assessment Suspected pneumonia Date of Service: Sep 18, 2025 Billing Provider: LULY BLACK MD Common Visit Codes: 09100-NRJ/OBS DISCH DAY >30min FRANCESCA NICHOLS RESIDENT Sep 18, 2025 14:29
== END 2025-09-18 13:05 | disposition home or self-care (01) | DRG 871 ==
LOC: ER 08:13 → OVERFLOW 11:01 → TELE-CENTR 21:03 → CENTRAL 09-18 10:03
PROVIDERS: ADMIT Internal Medicine Geriatric Medicine; ATTEND Internal Medicine Geriatric Medicine
DX: A41.59 Other Gram-negative sepsis (principal); J15.69 Pneumonia due to other Gram-negative bacteria; J15.9 Unspecified bacterial pneumonia; E66.9 Obesity, unspecified; J45.909 Unspecified asthma, uncomplicated; I10 Essential (primary) hypertension; G62.9 Polyneuropathy, unspecified; J06.9 Acute upper respiratory infection, unspecified; Z20.822 Contact with and (suspected) exposure to COVID-19; Z80.3 Family history of malignant neoplasm of breast; Z80.0 Family history of malignant neoplasm of digestive organs; Z88.0 Allergy status to penicillin; Z86.73 Personal history of transient ischemic attack (TIA), and cerebral infarction without residual deficits; Z68.30 Body mass index [BMI] 30.0-30.9, adult; Z79.899 Other long term (current) drug therapy
CPT/HCPCS: 36415; 70450; 70551; 71046; 71275; 80048; 80053; 80061; 80076; 80307; 81001; 82306; 82607; 83036; 83605; 83690; 83735; 83880; 84100; 84443; 84484; 85025; 85610; 85730; 86703; 86780; 86803; 87040; 87086; 87340; 87426; 87804; 93005; 93306; 93886; 94640; 96365; 96368; G0378